=== PATIENT | female | born 1960 | race Caucasian/White ===

== ENCOUNTER → 2018-01-16 | Outpatient (CLI) | payer OTHER ==
--- NOTE | 2018-01-16 17:56 | Diagnostic Imaging Report ---
EXAMINATION: Pelvis with right hip. INDICATION: Right-sided pain. FINDINGS: A single AP view of the pelvis and AP and lateral views of the right hip were obtained. There are no prior studies available for comparison. There is no fracture, dislocation, or acute bony abnormality evident. 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 There is increased density of each pubic symphysis. 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 On the views of the right hip, there is a 2.5 x 3.1 cm area of mixed density in the soft tissues lateral to the right ilium. Reportedly, the patient had an area of infection "lanced" yesterday. This finding may be related to that procedure. Clinical follow-up is recommended. IMPRESSION: 1. There is no acute bony abnormality noted. 2. The oval area of increased density in the soft tissues lateral to the right ilium is of uncertain etiology but may be related to the procedure performed yesterday in this area. Clinical follow-up is recommended. If further imaging of this region is desired, then ultrasound would be recommended. Dictated by: Dictated on workstation # [id number]
== END ==
LOC: RAD 15:53
PROVIDERS: ATTEND Nurse Practitioner Family
DX: M25.551 Pain in right hip (principal); L02.91 Cutaneous abscess, unspecified

== ENCOUNTER → 2018-06-05 | Outpatient (CLI) | payer OTHER ==
--- NOTE | 2018-06-05 12:01 | Diagnostic Imaging Report ---
INDICATION: Right hip pain 2 views of the right hip show no fracture, dislocation or other acute abnormalities. IMPRESSION: Negative right hip. Dictated by: Dictated on workstation # [id number]
== END ==
LOC: RAD 11:02
PROVIDERS: ATTEND Family Medicine
DX: M25.551 Pain in right hip (principal)
CPT/HCPCS: 73502

== ENCOUNTER → 2021-10-27 | Outpatient (CLI) | payer OTHER | LOC: LABNPT 07:49 | PROVIDERS: ATTEND Family Medicine | DX: Z01.812 Encounter for preprocedural laboratory examination (principal); Z20.822 Contact with and (suspected) exposure to COVID-19 | CPT/HCPCS: 87636 ==

== ENCOUNTER → 2022-01-05 | Outpatient (CLI) | payer OTHER | LOC: LAB 09:08 | PROVIDERS: ATTEND Family Medicine | DX: Z01.812 Encounter for preprocedural laboratory examination (principal); Z20.822 Contact with and (suspected) exposure to COVID-19 | CPT/HCPCS: 87636 ==

== ENCOUNTER → 2022-01-31 | Outpatient (CLI) | payer OTHER | LOC: LAB 07:59 | PROVIDERS: ATTEND Family Medicine | DX: Z03.818 Encounter for observation for suspected exposure to other biological agents ruled out (principal); Z20.822 Contact with and (suspected) exposure to COVID-19 | CPT/HCPCS: 87636 ==